=== PATIENT | female | born 2000 | race Caucasian/White ===

== ENCOUNTER 2025-04-07 03:29 | Day surgery (SDC) | payer OTHER, SELFPAY ==
[2025-04-01 14:46] VITALS: BMI 50.3
--- NOTE | 2025-04-01 14:53 | SUR.PREOP ---
[facility] has started construction of its new state of the art ER which will open Spring 2026. With this, we anticipate parking may be a challenge for some our surgical patients and families. Parking spaces are limited but are available for all Surgical, obstetrics, and ER patients sharing this lot. If you arrive and find you are having a hard time finding a parking space, please note that we understand the challenges, please drive around the hospital and park near Hospital Entrance 1. When you enter this entrance, you can ask a volunteer to direct or take you back to the surgical waiting area to check in. We appreciate everyone?s understanding of these expected challenges while we build for your future. Report to the Outpatient Waiting Room, entrance under the green pavilion located off [address], at time 8a.m. on date 04/07/2025. Planned Procedure Time: 10a.m..? Time changes happen often and if your time is changed the preop area will call you the afternoon before. - You and your visitor will be asked to self-screen and do not enter if you have any COVID symptoms. Please call surgeon if you need to reschedule. - A mask is optional within the hospital at this time. Patients may have clear liquids (water, carbonated beverages, clear teas, apple juice) until 3 hours prior to surgery with a maximum of 20 ounces. - No food from midnight until time of surgery and no smoking, or chewing tobacco (or any form of nicotine). No chewing gum, candy or mints. Take only the following medications with a SIP of water on the morning of surgery: NONE DO NOT STOP ANY OF YOUR OTHER PRESCRIPTION MEDICATIONS PRIOR TO SURGERY EXCEPT THE FOLLOWING Hold all vitamins and supplements for 3 days per anesthesiologist. Medications to discontinue per physician NONE Date to take last dose N/A Please no make-up, nail canadian, hairspray, perfume, deodorant, or body powder the day of surgery.? No jewelry (including any body piercings) or valuables the day of surgery, leave them at home.? Please take a shower or bath the night before, or the morning of, surgery with an antibacterial soap.? Wear comfortable, loose fitting clothing.? Children are encouraged to wear pajamas. - Jewelry must be removed prior to entering the operating room.? Rings and piercings that are not removed may be cut off. - The hospital will not accept responsibility for valuables.? - Please leave all valuables, including medications, at home the day of surgery. If you are going home after surgery, a licensed dairy truck driver must drive you home.? - NO public transportation without another adult if you receive anesthesia. - We recommend that an adult stay with you for 24 hours following discharge. - We also recommend that you do not drive, make important decision, drink alcoholic beverages, or take any drugs that were not prescribed by your health care provider for at least 24 hours after your discharge time. Follow any additional instructions given to you from your surgeon. Telephone instructions given to Светлана Turk and asked if any additional questions and then verbalized understanding. Patient advised to call surgeon office or pre surgery nurse liaison [phone] if any additional questions.
[2025-04-07] VITALS (9 sets, daily range): BP systolic 106–153; BP diastolic 61–98; PULSE 70–107; RESP 14–21; TEMP 36.1–36.4; O2SAT 94–100
[2025-04-07] MEDS: ACETAMINOPHEN 500 MG TABLET 1000 MG PO (07:00)
[2025-04-07] MEDS: LACTATED RINGERS 1,000 ML 30 ML IV CONT ×2 (07:00→08:28)
--- NOTE | 2025-04-07 07:14 | WPDANESEPPF ---
Anes - Initial Pre Proc Eval Procedure: Operation Date: 04/07/25 07:30 Proposed Procedures p Adenotonsillectomy - Darryl Sparrow MD Date/Time: 04/07/25 07:14 Surgeon: Darryl Sparrow MD Pre Op Diagnosis: chronic tonsillitis and adenoiditis Patient Data Age: 24 Gender: F Height: 1.57 m Weight: 124.7 kg Allergies Allergy/AdvReac Type Severity Reaction Status Date / Time latex Allergy Severe Rash Verified 04/01/25 14:44 Laboratory Tests 04/07/25 06:40 Beta HCG, Quant Pending Patient hx anesthesia problems: none Family hx anesthesia problems: none Results Review: All pre-operative results and documents have been reviewed as part of the pre-operative evaluation. [facility] Past Medical History Medical History Sleep-disordered breathing Chronic tonsillitis and adenoiditis Vaping nicotine dependence, tobacco product BMI 45.0-49.9, adult Otitis media, right Otitis media, left Chronic anxiety Snoring Nausea and vomiting Pain, joint, multiple sites Elevated WBC count COVID-19 (~05/2020) Chronic depression Anxiety Hypersomnia Chronic tonsillar hypertrophy Morbid obesity with body mass index (BMI) of 40.0 to 44.9 in adult Gastro-esophageal reflux disease without esophagitis Screening for diabetes mellitus Vagina, candidiasis Folic acid deficiency B12 deficiency Body mass index (BMI) of 40.1 to 44.9 in adult IUD (intrauterine device) in place Current nicotine vaping on some days BMI 39.0-39.9,adult Post-nasal drip Anxiety and depression Acute erythematous tonsillitis Encounter to establish care Depression Anxiety Family History Family History Father Acute myocardial infarction Social History Social History Social History: Caffeine- daily Years smoked: 2 Smoking status: Current every day smoker Tobacco type: e-cigarettes/vaping Alcohol intake: current Drinks per week: 3 Alcohol use details: weekends only occasionally Substance use: current Substance use type: marijuana Other substance usage details: twice daily Living arrangements: with family Spiritual care concerns: No Anes - Eval Final PreProcedure Day of Procedure 04/07/25 07:14 Patient weight: super morbidly obese Heart: regular rate and rhythm Lungs: clear to auscultation Airway: Mallampati scale class II Neurological: alert and oriented Last oral intake: >/= 8 hours ASA classification: III Emergent: no Anesthetic plan: proceed Anesthesia type and monitoring: general ETT and standard monitoring Results Review: All pre-operative results and documents have been reviewed as part of the pre-operative evaluation. Informed Consent: The patient's anesthetic plan and its attendant risks and benefits were discussed with the patient/family/POA. Questions were solicited and answers provided to the satisfaction of the patient/family/POA.
[2025-04-07 07:17] LABS: Beta HCG Quantitative < 2.39 mIU/ML
--- NOTE | 2025-04-07 07:21 | PM.HPGS ---
History of Present Illness History of Present Illness Consent: Risks, benefits, and alternatives have been discussed and questions answered. Patient agrees to proceed with procedure. Chief complaint: chronic tonsillitis and adenoiditis Narrative: Светлана Turk is a 24 year old female with a Hx of chronic tonsillitis, sleep disordered breathing, and likely sleep apnea. She has been treated with abx and steroids in the past but her chronic tonsillitis has persisted. She was evaluated in clinic and found to have 4+ bilateral tonsillar hypertrophy. She was recommended adenotonsillectomy and she presents for this today. Review of Systems Review of Systems: All systems reviewed & are unremarkable except as noted in HPI and below PMFSH Past Medical History Medical History Sleep-disordered breathing Chronic tonsillitis and adenoiditis Vaping nicotine dependence, tobacco product BMI 45.0-49.9, adult Otitis media, right Otitis media, left Chronic anxiety Snoring Nausea and vomiting Pain, joint, multiple sites Elevated WBC count COVID-19 (~05/2020) Chronic depression Anxiety Hypersomnia Chronic tonsillar hypertrophy Morbid obesity with body mass index (BMI) of 40.0 to 44.9 in adult Gastro-esophageal reflux disease without esophagitis Screening for diabetes mellitus Vagina, candidiasis Folic acid deficiency B12 deficiency Body mass index (BMI) of 40.1 to 44.9 in adult IUD (intrauterine device) in place Current nicotine vaping on some days BMI 39.0-39.9,adult Post-nasal drip Anxiety and depression Acute erythematous tonsillitis Encounter to establish care Depression Anxiety Family History Family History Father Acute myocardial infarction Social History Social History Social History: Caffeine- daily Years smoked: 2 Smoking status: Current every day smoker Tobacco type: e-cigarettes/vaping Alcohol intake: current Drinks per week: 3 Alcohol use details: weekends only occasionally Substance use: current Substance use type: marijuana Other substance usage details: twice daily Living arrangements: with family Spiritual care concerns: No Meds Home Medications and Allergies Allergies Allergy/AdvReac Type Severity Reaction Status Date / Time latex Allergy Severe Rash Verified 04/07/25 07:21 Vital Signs Vital Signs - 24 hr 04/07/25 07:00 Temperature 36.1 C L Pulse Rate 107 H Respiratory Rate 16 Blood Pressure 144/75 H Pulse Oximetry 97 Oxygen Delivery Room Air Exam Narrative: General: Well developed, well nourished. No apparent distress. Voice strong. Head: Normocephalic, atraumatic. Eyes: Sclerae and conjunctivae clear. Pupils equal and round. Full extraocular motility. Ears: Normal pinnae. Nose: Nasal dorsum is straight. No drainage or crusting at nares. Normal mucosa. Oral Cavity / Oropharynx: Moist mucous membranes. Neck: Supple, nontender. No palpable lymphadenopathy, neck mass, or thyromegaly. Lungs: Respirations unlabored. Cardiovascular: Extremities warm and well perfused. Neurologic: Alert, oriented. Moves all extremities. Facial sensation intact to light touch. Face symmetric. Palate elevates symmetrically. Tongue midline. Assessment and Plan Assessment and plan (1) Chronic tonsillitis and adenoiditis: Code(s): J35.03 - Chronic tonsillitis and adenoiditis Status: Acute (2) Sleep-disordered breathing: Code(s): G47.30 - Sleep apnea, unspecified Status: Acute Plan Will proceed to the OR for adenotonsillectomy. The risks, benefits, and alternatives to surgery were discussed. The risks of pain, bleeding, infection, scarring, no improvement in symptoms, worsening symptoms, recurrent symptoms, injury to the lips or teeth or gums, tongue swelling and bruising, tongue numbness, altered taste, injury to the neck, injury to the amy tubarii, velopharyngeal insufficiency, dehydration requiring hospitalization, postoperative hemorrhage requiring return to the OR, and catastrophic bleeding resulting in stroke or were all reviewed. The patient expressed understanding and wishes to proceed with surgery.
--- NOTE | 2025-04-07 07:27 | WPDHPUPDATE1 ---
History and Physical Update Update Date/Time: 04/07/25 07:27 History and Physical has been reviewed, including an updated exam of the patient. There are NO changes in the patient's condition. Risks, benefits, and alternatives have been discussed and questions answered. Patient agrees to proceed with procedure.
--- NOTE | 2025-04-07 07:53 | S_PTH ---
PATIENT: Светлана Turk LOC: [facility] U#:[id number] AGE/SX: 24/F ROOM: RE04/07/[address]: Darryl Sparrow MD : 2000 BED: DIS: 04/07/2025 SPEC #: [id number] RECD: 04/07/25 10:14 STATUS: GAETANO REQ #: [id number] GISSEL: 04/07/25 07:[address]: Darryl Sparrow DEPT: [facility] [place] Surgical RECD BY: Tashi Keating ENTERED: 04/07/25 10:14 SP TYPE: Surgical OTHR DR: Rosana Cruz APRN Tissues: A - Tonsil NOS Procedures: Hematoxylin and Eosin Stain Gross and Microscopic Level 3
--- NOTE | 2025-04-07 08:34 | P.OP_ITS ---
Procedure Note - Detailed Date of Procedure 04/07/25 Pre-op Diagnosis chronic tonsillitis and adenoiditis sleep disordered breathing tonsillar hypertrophy Post-op Diagnosis Same Procedure Performed Adenotonsillectomy Surgeon Darryl Sparrow MD Anesthesia General Findings Bilateral tonsillar hypertrophy, exophytic, 4+ Small adenoid pad Significant scar tissue and inflammation encountered during the procedure Description of Procedure Patient was identified in the preoperative area, and informed written consent was obtained. The patient was transported to the operating room and placed supine on the operating room table. The anesthesiology service induced general anesthesia and intubated the patient. The patient was then positioned and draped. A surgical time-out was conducted confirming the patient's identity and the procedure to be performed. A Roberto-Rusty retractor was placed. The patient was then placed in suspension from the [facility]. A soft cotton tie was placed through the right nasal cavity and was used to retract the uvula and soft palate. The oropharynx was inspected. The uvula was monofid and the palate was intact without submucosal cleft. The tonsils were 4+ in size bilaterally. The adenoid pad was small. Attention was turned to the adenoidectomy. The adenoids were fulgurated using suction monopolar cautery. Hemostasis was confirmed. Attention was turned to the bilateral tonsillectomy. The right tonsil was grasped with a curved Allis forceps. Using monopolar cautery, the tonsil was dissected free from the tonsillar fossa along its capsule in a superior to inferior fashion. Upon reaching the inferior pole, the tonsillar tissue was truncated. Hemostasis was then achieved using suction monopolar cautery. In similar fashion, the left tonsil was grasped with a curved Allis forceps. Using monopolar cautery, the tonsil was dissected free from the tonsillar fossa along its capsule in a superior to inferior fashion. Upon reaching the inferior pole, the tonsillar tissue was truncated. Hemostasis was then achieved using suction monopolar cautery. The nasal cavities, nasopharynx, and oropharynx were then irrigated with copious saline. The patient was taken out of suspension for 2 minutes then the oropharynx was reexamined and hemostasis was confirmed. The cotton tie and Roberto-Rusty were removed. There were no injuries to the lips, teeth, or gums. The patient was returned to the anesthesiology service. She was awoken, extubated, and transferred to the postoperative recovery area in stable condition. There were no immediate complications. Estimated Blood Loss 20
[2025-04-07] MEDS: fentaNYL CITRATE INJ (*CRX) 100 MCG/2 ML VIAL 25 MCG IV PUSH ×2 (08:57→08:59)
[2025-04-07] MEDS: oxyCODONE HCL (*CRX) 5 MG TAB IR PO (09:44)
== END 2025-04-07 10:31 | disposition home or self-care (01) ==
PROVIDERS: PCP Nurse Practitioner Family; Visit Provider Otolaryngology
PROC: (CPT 42821; principal; 2025-04-07 07:30)
DX: J35.03 Chronic tonsillitis and adenoiditis (principal); G47.30 Sleep apnea, unspecified; F17.290 Nicotine dependence, other tobacco product, uncomplicated; F12.90 Cannabis use, unspecified, uncomplicated; E66.01 Morbid (severe) obesity due to excess calories; Z68.43 Body mass index [BMI] 50.0-59.9, adult
CPT/HCPCS: 42821; 36415; 84702; 88304; A9270; J1100; J2003; J2250; J2405; J2704; J3010; J7120